=== PATIENT | female | born 1980 | race Caucasian/White ===

== ENCOUNTER 2019-09-28 21:48 | Observation (INO) ==
[2019-09-28] MEDS ORDERED: PROMETHAZINE 25 MG/51 ML BAG IV STA (23:06)
[2019-09-28] MEDS ORDERED: SODIUM CHLORIDE 0.9% 1000ML 2,000 ML IV ONE (23:06)
[2019-09-28 23:18] LABS: Appearance Urine Cloudy (Clear); Bacteria Urine Automated 1+ (Negative); Bilirubin Urine Negative (Negative); Blood Urine 2+ (Negative); Color Urine Dark Yellow; Epithelial Cell Urine Auto >30 /lpf (0-5); Glucose Urine UA Negative (Negative); Leukocyte Esterase Urine 1+ (Negative); Nitrite Urine Negative (Negative); Protein Urine Trace (Negative); Specific Gravity Urine 1.028 (1.000-1.030); Urobilinogen Urine Negative (Negative); pH Urine 5.5 (4.5-7.5)
[2019-09-28 23:22] LABS: Basophils # (auto) 0.01 K/uL (0-0.2); Basophils % (auto) 0.1 %; Eosinophils % (auto) 1.5 %; Hematocrit (blood only) 39.1 % (37-47); Immature Granulocytes # (auto) 0.02 K/uL (0.00-0.02); Immature Granulocytes % (auto) 0.3 %; Lymphocytes # (auto) 1.31 K/uL (1.2-3.4); Lymphocytes % (auto) 19.1 %; Mean Corpuscular Hemoglobin 29.9 pg (25-34); Mean Corpuscular Hgb Conc 35.8 g/dL (32-36); Mean Corpuscular Volume 83.5 fL (80-100); Mean Platelet Volume 9.6 fL (7.4-10.4); Monocytes # (auto) 0.48 K/uL (0.11-0.59); Neutrophils # (auto) 4.95 K/uL (1.4-6.5); Platelet Count 238 K/uL (130-400); RDW Standard Deviation 38.9 fL (36.4-46.3); Red Blood Count 4.68 M/uL (4.2-5.4); White Blood Count 6.87 K/uL (4.8-10.8)
[2019-09-28 23:37] LABS: Ketones Urine 4+ (Negative)
[2019-09-28 23:46] LABS: Albumin Level 3.9 gm/dl (3.4-5.0); BUN Creatinine Ratio 15.7 (10-20); Calcium 9.1 mg/dl (8.5-10.1); Creatinine Clr Calc Pharmacy 80.3 ml/min; Est GFR (African American) 97.3; Est GFR (Non-African American) 83.9; Potassium 3.5 mmol/L (3.5-5.1)
[2019-09-28 23:49] LABS: Bilirubin,Total 0.4 mg/dl (0.2-1); Globulin 3.8 gm/dl (2.5-4.0); Total Protein 7.7 gm/dl (6.4-8.2)
[2019-09-29] MEDS ORDERED: ACETAMINOPHEN 500 MG TAB PO STA (00:33)
[2019-09-29] MEDS ORDERED: KETOROLAC 30 MG/ML VIAL IV STA (00:33)
[2019-09-29] MEDS ORDERED: ONDANSETRON INJ 2 MG/ML 2 ML VIAL IV STA (00:33)
--- NOTE | 2019-09-29 00:38 | Emergency Department Note ---
History of Present Illness General Chief complaint: Nausea Stated complaint: NAUSEA, VOMMITTING, ABD PAIN History of Present Illness Maximum Pain Intensity: 6 HPI Narrative: This patient is a 38-year-old female who presents ambulatory to the emergency department for evaluation of nausea, vomiting, diarrhea and abdominal discomfort. The abdominal discomfort and nausea started several weeks ago. She started with vomiting over the weekend, 3 days ago. She denies any hematemesis. No coffee-ground emesis. She reports that it looks greenish in color. She also reports loose stools starting today. No black or bloody stools. She reports all over body aches. She says the abdominal discomfort is a burning sensation located in the left upper abdomen that is worse with eating. She also describes a fullness in the abdomen. She has not tried anything [id number] for her symptoms. Past Med/Surg History Medical History No pertinent past medical history Social History Feels Safe at Home: Yes Smoking Status: Never smoker Review of Systems A total of 10 systems reviewed and were otherwise negative Physical Exam Vital Signs: Vital Signs - 24 hr 09/28/19 21:54 09/28/19 22:52 09/29/19 00:54 Temperature 37.0 C Temperature Source Oral Pulse Rate 93 H Pulse Rate [Right Finger] 88 68 Pulse Rhythm [Righ t Finger] Regular Respiratory Rate 20 18 14 Respiratory Effort / Characteristics Non-Labored Sponta neous Non-Labored Sponta neous Respiratory Depth Normal Normal Respiratory Patter n Regular Regular Blood Pressure 179/123 H Blood Pressure [Ri ght Arm] 185/131 H 182/121 H Blood Pressure Cee n 141 Blood Pressure Cee n [Right Arm] 149 141 Blood Pressure Pos ition Sitting Pulse Oximetry 98 98 99 Oxygen Delivery Me thod Room Air Room Air Room Air Sepsis Recent Feve r Within 48 Hours No Sepsis New/Unexpla ined Change in Men donald Status No Sepsis Action Take n by Nursing No Action Required 09/29/19 01:50 Temperature Temperature Source Pulse Rate Pulse Rate [Right Finger] 88 Pulse Rhythm [Righ t Finger] Respiratory Rate 16 Respiratory Effort / Characteristics Non-Labored Sponta neous Respiratory Depth Normal Respiratory Patter n Blood Pressure Blood Pressure [Ri ght Arm] 175/117 H Blood Pressure Cee n Blood Pressure Cee n [Right Arm] 136 Blood Pressure Pos ition Pulse Oximetry 97 Oxygen Delivery Me thod Room Air Sepsis Recent Feve r Within 48 Hours Sepsis New/Unexpla ined Change in Men donald Status Sepsis Action Take n by Nursing Constitutional: WD/WN, vitals as above Eyes: EOM intact bilaterally ENMT: external ear and nose normal, oropharynx normal Neck: trachea midline Respiratory: normal respiratory effort, lungs clear to auscultation Cardiovascular: RRR, no murmur, no edema Gastrointestinal (Abdomen): Bowel sounds present, but hypoactive. Tenderness to palpation in the left upper quadrant and epigastric region. No guarding or rebound tenderness. No rigidity noted. Negative Rovsing sign. Musculoskeletal: no cyanosis or clubbing, extremities motor strength 5/5 Skin: no rashes, warm and dry Neurologic: Alert and oriented x3. No focal motor deficits. Psychiatric: Acting appropriately Course Course Patient was seen and examined Vital signs including blood pressure were reviewed medications list was verified with patient Labs were obtained, and a saline lock was established Med/fluids ordered. Imaging performed and reviewed. Upon reevaluation, she was complaining of body aches and nausea. More medication was ordered. We discussed her work-up. She voiced understanding. The case was discussed with surgery and subsequently the hospitalist service. They kindly agreed to evaluate the patient for likely inpatient management. Consultations Consultation #1: Dr. Nowak Consultation #2: Dr. Willson Administered Medications Discontinued Medications Acetaminophen (Tylenol) 1,000 mg PO NOW STA Stop: 09/29/19 00:34 Last Admin: 09/29/19 00:56 Dose: Not Given Documented by: [id number] Hydromorphone HCl (Dilaudid) 0.5 mg IV NOW STA Stop: 09/29/19 01:27 Last Admin: 09/29/19 01:35 Dose: 0.5 mg Documented by: [id number] Sodium Chloride (Nss 1000ml) 2,000 mls @ 999 mls/hr IV .Q2H1M ONE Stop: 09/29/19 01:06 Last Infusion: 09/29/19 00:56 Dose: 0 mls/hr Documented by: [id number] Admin: 09/28/19 23:19 Dose: 999 mls/hr Documented by: [id number] Promethazine HCl (Phenergan) 25 mg in 51 mls @ 204 mls/hr IV NOW STA Stop: 09/28/19 23:20 Last Infusion: 09/29/19 00:32 Dose: 0 mls/hr Documented by: [id number] Admin: 09/28/19 23:19 Dose: 204 mls/hr Documented by: [id number] Ketorolac Tromethamine (Toradol) 30 mg IV NOW STA Stop: 09/29/19 00:34 Last Admin: 09/29/19 00:48 Dose: 30 mg Documented by: [id number] Ondansetron HCl (Zofran) 4 mg IV NOW STA Stop: 09/29/19 00:34 Last Admin: 09/29/19 00:47 Dose: 4 mg Documented by: [id number] Medical Decision Making Differential Diagnosis + gastroenteritis, + food borne illness, + infections, + appendicitis, + diver ticulitis, + inflammatory bowel disease, + GI bleed, + biliary pathology and + vomiting Pancreatitis, among others Medical Records Attestation: I reviewed the patient's medical records. Home Medications Current Medication List: was personally reviewed by me Laboratory Data Attestation: I reviewed the patient's lab results. Result diagrams: 09/28/19 23:12 09/28/19 23:12 Lab Results 09/28/19 09/28/19 09/28/19 Range/Units 22:55 22:55 23:12 WBC 6.87 (4.8-10.8) K/uL RBC 4.68 (4.2-5.4) M/uL Hgb 14.0 (12.0-16.0) g/dL Hct 39.1 (37-47) % MCV 83.5 (80-100) fL MCH 29.9 (25-34) pg MCHC 35.8 (32-36) g/dL RDW Std Deviation 38.9 (36.4-46.3) fL RDW Coeff of Janeen 13.0 (11.5-14.5) % Plt Count 238 (130-400) K/uL MPV 9.6 (7.4-10.4) fL Immature Gran % (Auto) 0.3 % Neut % (Auto) 72.0 % Lymph % (Auto) 19.1 % [place] % (Auto) 7.0 % Eos % (Auto) 1.5 % Baso % (Auto) 0.1 % Immature Gran # (Auto) 0.02 (0.00-0.02) K/uL Neut # (Auto) 4.95 (1.4-6.5) K/uL Lymph # (Auto) 1.31 (1.2-3.4) K/uL [place] # (Auto) 0.48 (0.11-0.59) K/uL Eos # (Auto) 0.10 (0-0.5) K/uL Baso # (Auto) 0.01 (0-0.2) K/uL Sodium (136-145) mmol/L Potassium (3.5-5.1) mmol/L Chloride (98-107) mmol/L Carbon Dioxide (21-32) mmol/L Anion Gap (3-11) BUN (7-18) mg/dl Creatinine (0.6-1.2) mg/dl Est Cr Clr Drug Dosing ml/min Est GFR ( Amer) Est GFR (Non-Af Amer) BUN/Creatinine Ratio (10-20) Glucose (70-99) mg/dl Calcium (8.5-10.1) mg/dl Total Bilirubin (0.2-1) mg/dl AST (15-37) U/L ALT (12-78) U/L Alkaline Phosphatase (45-117) U/L Total Protein (6.4-8.2) gm/dl Albumin (3.4-5.0) gm/dl Globulin (2.5-4.0) gm/dl Albumin/Globulin Ratio (0.9-2) Lipase (73-393) U/L Urine Color Dark Yellow Urine Appearance Cloudy A (Clear) Urine pH 5.5 (4.5-7.5) Ur Specific [place] 1.028 (1.000-1.030) Urine Protein Trace H (Negative) Urine Glucose (UA) Negative (Negative) Urine Ketones 4+ H (Negative) Urine Blood 2+ H (Negative) Urine Nitrite Negative (Negative) Urine Bilirubin Negative (Negative) Urine Urobilinogen Negative (Negative) Ur Leukocyte Esterase 1+ H (Negative) Urine WBC (Auto) 10-30 H (0-5) /hpf Urine RBC (Auto) 5-10 H (0-4) /hpf U Hyaline Cast (Auto) 5-10 H (0-5) /lpf U Epithel Cells (Auto) >30 H (0-5) /lpf Urine Bacteria (Auto) 1+ H (Negative) Urine Test Negative (Negative) Influenza Type A Ag (Neg) Influenza Type B Ag (Neg) 09/28/19 09/29/19 Range/Units 23:12 00:52 WBC (4.8-10.8) K/uL RBC (4.2-5.4) M/uL Hgb (12.0-16.0) g/dL Hct (37-47) % MCV (80-100) fL MCH (25-34) pg MCHC (32-36) g/dL RDW Std Deviation (36.4-46.3) fL RDW Coeff of Janeen (11.5-14.5) % Plt Count (130-400) K/uL MPV (7.4-10.4) fL Immature Gran % (Auto) % Neut % (Auto) % Lymph % (Auto) % [place] % (Auto) % Eos % (Auto) % Baso % (Auto) % Immature Gran # (Auto) (0.00-0.02) K/uL Neut # (Auto) (1.4-6.5) K/uL Lymph # (Auto) (1.2-3.4) K/uL [place] # (Auto) (0.11-0.59) K/uL Eos # (Auto) (0-0.5) K/uL Baso # (Auto) (0-0.2) K/uL Sodium 138 (136-145) mmol/L Potassium 3.5 (3.5-5.1) mmol/L Chloride 106 (98-107) mmol/L Carbon Dioxide 22 (21-32) mmol/L Anion Gap 10.0 (3-11) BUN 14 (7-18) mg/dl Creatinine 0.87 (0.6-1.2) mg/dl Est Cr Clr Drug Dosing 80.3 ml/min Est GFR ( Amer) 97.3 Est GFR (Non-Af Amer) 83.9 BUN/Creatinine Ratio 15.7 (10-20) Glucose 73 (70-99) mg/dl Calcium 9.1 (8.5-10.1) mg/dl Total Bilirubin 0.4 (0.2-1) mg/dl AST 11 L (15-37) U/L ALT 14 (12-78) U/L Alkaline Phosphatase 91 (45-117) U/L Total Protein 7.7 (6.4-8.2) gm/dl Albumin 3.9 (3.4-5.0) gm/dl Globulin 3.8 (2.5-4.0) gm/dl Albumin/Globulin Ratio 1.0 (0.9-2) Lipase 188 (73-393) U/L Urine Color Urine Appearance (Clear) Urine pH (4.5-7.5) Ur Specific [place] (1.000-1.030) Urine Protein (Negative) Urine Glucose (UA) (Negative) Urine Ketones (Negative) Urine Blood (Negative) Urine Nitrite (Negative) Urine Bilirubin (Negative) Urine Urobilinogen (Negative) Ur Leukocyte Esterase (Negative) Urine WBC (Auto) (0-5) /hpf Urine RBC (Auto) (0-4) /hpf U Hyaline Cast (Auto) (0-5) /lpf U Epithel Cells (Auto) (0-5) /lpf Urine Bacteria (Auto) (Negative) Urine Test (Negative) Influenza Type A Ag Neg for Influ A (Neg) Influenza Type B Ag Neg for Influ B (Neg) Imaging Data Attestation: I personally reviewed and interpreted this imaging study as follows: My Impression: Per stat rad Radiologist's Impression: Ultrasound gallbladder preliminary stat rad consistent with multiple gallstones and sludge. No signs of cholecystitis noted. MDM Narrative This patient is a 38-year-old female who presents to the emergency department with complaints of nausea, vomiting and abdominal discomfort. On exam, she was not febrile. Abdomen is not rigid. Labs are fairly unremarkable. Preliminary report of the gallbladder ultrasound is consistent with multiple gallstones. I believe this is contributing to her symptoms. She does not have any signs of cholecystitis. The case was discussed with surgery in addition to the hospitalist service. She will be evaluated for likely inpatient management due to the fact that her nausea was uncontrolled in the emergency department. Impression & Plan Intractable vomiting, Cholelithiasis Discharge Plan Visit Data Chief Complaint: Nausea Stated Complaint: NAUSEA, VOMMITTING, ABD PAIN ED Provider: Derrell Rodriguez ED Midlevel Provider: Tamara Otto Discharge Problem: Intractable vomiting, Cholelithiasis Patient Disposition: Being Evaluated by Hospitalist Condition: Fair Forms Stand Alone Forms: [facility] Referrals Referrals: PCP,NO [Primary Care Provider] -
[2019-09-29 01:02] LABS: Pregnancy Test, Urine Negative (Negative)
[2019-09-29] MEDS ORDERED: HYDROmorphone INJ 0.5 MG/0.5 ML SYR IV STA (01:26)
--- NOTE | 2019-09-29 03:43 | History & Physical Report ---
Date of Service September 29, 2019 Assessment & Plan (1) Intractable vomiting: Britni Acosta is a 38 y/o female with past medical hx of Anxiety, Depression, Migraines, GERD who was admitted for Intractable Vomiting; also HTN most likely rebound from not taking Clonidine. - Suspect viral gastroenteritis as we are seeing this as an endemic illness - She is currently non-toxic, comfortable, states she feels like her prior medications here in ED "are wearing off" - This could be contributed by her rebound HTN from not taking her Clonidine. - All lab work is unremarkable, no electrolyte abnormalities to replace in setting of patient's reported GI symptoms - Will order Zofran 4mg IV q4H - Will attempt to avoid narcotic medications here, already received in ED, in patient with hx of uncontrolled migraines, do not want to cause rebound headache - Toradol ordered for pain - continue hydration with another bag of NSS @ 125mL/hr - Gentle diet with liquid diet - No significantly elevated Pulse to show compensation from GI loss - Unsure that gallstones are contributor Code: full code DVT ppx: SCDs, will avoid chemical as vomiting can cause kamilla adria tear FENGI: Liquid diet, continue with home PPI Dipso: Obs, Med/surg (2) Rebound hypertension: Most likely from not getting her Clonidine from her vomiting causing rebound HTN Hydralazine 10mg IV x1 ordered Follow vital signs (3) Cholelithiasis: As noted on RUQ US, without signs of acute cholecystitis (4) H/O migraine: hold home meds including Triptan in setting of elevated BP (5) Anxiety: Continue with home Wellbrutin Continue with home Clonidine Continue with home Lamotrigine 100mg daily (6) DVT prophylaxis: SCDs History of Present Illness Chief Complaint: Intractable Vomiting Primary Care Provider: NO PCP Britni Acosta is a 38 y/o female with past medical hx of Anxiety, Depression, Migraines, GERD who presented to [facility] ED for CC of Vomiting. She notes onset of vomiting today x4 with continuous nausea, no bloody emesis; emesis was green. She notes she has a numerous episodes of loose stools which have resolved; no black/bloody stools. She notes generalized abdominal pain and RUQ pain as well. She states she has had early satiety for weeks "I haven't been able to eat for weeks." She notes she is unable to eat any thing fried/fatty because of RUQ love n. She denies sick contacts. Britni states she hasn't been able to take her Clonidine which she takes for her mood because of vomiting. She denies prior hx of HTN or DM. All of her home meds are related to Migraine treatment or her Anxiety/depression. She takes Tramadol for neck pain between her botox injections and her Ajovy injection. She follows with a neurologist. She is from [place] but came here to [facility] "because [place] [facility] sucks." Here in the ED she was found to be significantly HTN with BP 180s/120s. Her lab work was unremarkable. UA was contaminated. She was treated with Dilaudid 0.5mg IV, Zofran 4mg IV x1, Toradol 30mg IV x1, Tylenol 1gm PO, Phenergan 25mg IV x1, and received 2L of NSS Bolus. She was had a KUB and RUQ US which showed gallstones without signs of cholecystitis. She denies smoking or recreational drugs. She did not get the annual influenza vaccine. She notes only prior abd surgery was laparoscopic for endometriosis. Allergies Allergy/AdvReac Type Severity Reaction Status Date / Time blue dye Allergy Swelling Verified 09/29/19 02:30 of Lip/Tongue/Throat latex Allergy Rash Verified 09/29/19 02:30 peanut Allergy Swelling Verified 09/29/19 02:30 of Lip/Tongue/Throat Home Medications Home Medications Medication Instructions Recorded Confirmed Type bupropion HCl 100 mg PO .AT NOON 09/29/19 09/29/19 History bupropion HCl 150 mg PO QAM 09/29/19 09/29/19 History clonidine HCl 0.05 mg PO QAM 09/29/19 09/29/19 History clonidine HCl 0.1 mg PO HS 09/29/19 09/29/19 History fremanezumab-vfrm [Ajovy] 225 mg SUBCUT MONTHLY 09/29/19 09/29/19 History lamotrigine 100 mg PO DAILY 09/29/19 09/29/19 History norethindrone (contraceptive) 0.35 mg PO DAILY 09/29/19 09/29/19 History [Blanca] pantoprazole 40 mg PO DAILY 09/29/19 09/29/19 History riboflavin (vitamin B2) [Vitamin 100 mg PO Q OTHER DAY 09/29/19 09/29/19 History B-2] sumatriptan succinate 100 mg PO UD PRN 09/29/19 09/29/19 History tramadol 50 mg PO Q6 PRN 09/29/19 09/29/19 History trazodone 25 - 50 mg PO HS PRN 09/29/19 09/29/19 History Past Med/Surg History Medical History No pertinent past medical history Social History Communication Ability: Effective Promotions Producer Required: No Beliefs That Will Affect Care: None Current Living Situation: Spouse Other Information That Helps Us Care for You: No Feels Safe at Home: Yes Safety Concerns: Feels Safe At This Time Smoking Status: Never smoker Do You Dip or Chew Tobacco: No ; Second Hand Exposure: No ; Tobacco Cessation Education Requested by Patient: No Hx Alcohol Use: No Hx Substance Use: No Review of Systems Review of Systems: All systems reviewed & are unremarkable except as noted in HPI & below Constitutional: no fever and no chills Eyes: no worsening vision Ear, Nose, Mouth, Throat: no nasal congestion and no sore throat Respiratory: + cough; no dyspnea Cardiovascular: no chest pain Gastrointestinal: + abdominal pain, + early satiety, + nausea, + vomiting and + diarrhea/loose stools; no constipation and no blood in stools Genitourinary: Integumentary: no rash and no lesions Neurologic: no numbness and no confusion Physical Exam Constitutional: WD/WN, vitals as above cooperative and comfortable numerous tattoos across body and torso Eyes: PERRL, conjunctivae normal, anicteric sclerae ENMT: external ear and nose normal, oropharynx normal Neck: normal visual inspection and trachea midline Respiratory: normal respiratory effort; no respiratory distress and does not use accessory muscles Auscultation: + diminished lung sounds; no crackles, no rales and no rhonchi Cardiovascular: RRR, no murmur, no edema Gastrointestinal (Abdomen): Inspection/Auscultation: normal bowel sounds Percussion/Palpation: abdomen soft; abdomen nontender, no guarding and abdomen not rigid umbilical old surgical scar consistent with prior laparoscopic surgery Skin: no rashes, warm and dry Neurologic: moves all extremities and awake; no focal motor deficits and not confused Psychiatric: A+Ox3, euthymic affect Results & Data Vital Signs (Past 12 Hours) Vital Signs Temp Pulse Pulse Resp BP BP Pulse Ox 09/29/19 01:50 88 16 175/117 H 97 09/29/19 00:54 68 14 182/121 H 99 09/28/19 22:52 88 18 185/131 H 98 09/28/19 21:54 37.0 C 93 H 20 179/123 H 98 Laboratory Results Laboratory Results - last 24 hr 09/28/19 09/28/19 09/28/19 22:55 22:55 23:12 WBC 6.87 RBC 4.68 Hgb 14.0 Hct 39.1 MCV 83.5 MCH 29.9 MCHC 35.8 RDW Std Deviation 38.9 RDW Coeff of Janeen 13.0 Plt Count 238 MPV 9.6 Immature Gran % (Auto) 0.3 Neut % (Auto) 72.0 Lymph % (Auto) 19.1 [place] % (Auto) 7.0 Eos % (Auto) 1.5 Baso % (Auto) 0.1 Immature Gran # (Auto) 0.02 Neut # (Auto) 4.95 Lymph # (Auto) 1.31 [place] # (Auto) 0.48 Eos # (Auto) 0.10 Baso # (Auto) 0.01 Sodium Potassium Chloride Carbon Dioxide Anion Gap BUN Creatinine Est Cr Clr Drug Dosing Est GFR ( Amer) Est GFR (Non-Af Amer) BUN/Creatinine Ratio Glucose Calcium Total Bilirubin AST ALT Alkaline Phosphatase Total Protein Albumin Globulin Albumin/Globulin Ratio Lipase Urine Color Dark Yellow Urine Appearance Cloudy A Urine pH 5.5 Ur Specific [place] 1.028 Urine Protein Trace H Urine Glucose (UA) Negative Urine Ketones 4+ H Urine Blood 2+ H Urine Nitrite Negative Urine Bilirubin Negative Urine Urobilinogen Negative Ur Leukocyte Esterase 1+ H Urine WBC (Auto) 10-30 H Urine RBC (Auto) 5-10 H U Hyaline Cast (Auto) 5-10 H U Epithel Cells (Auto) >30 H Urine Bacteria (Auto) 1+ H Urine Test Negative Influenza Type A Ag Influenza Type B Ag 09/28/19 09/29/19 23:12 00:52 WBC RBC Hgb Hct MCV MCH MCHC RDW Std Deviation RDW Coeff of Janeen Plt Count MPV Immature Gran % (Auto) Neut % (Auto) Lymph % (Auto) [place] % (Auto) Eos % (Auto) Baso % (Auto) Immature Gran # (Auto) Neut # (Auto) Lymph # (Auto) [place] # (Auto) Eos # (Auto) Baso # (Auto) Sodium 138 Potassium 3.5 Chloride 106 Carbon Dioxide 22 Anion Gap 10.0 BUN 14 Creatinine 0.87 Est Cr Clr Drug Dosing 80.3 Est GFR ( Amer) 97.3 Est GFR (Non-Af Amer) 83.9 BUN/Creatinine Ratio 15.7 Glucose 73 Calcium 9.1 Total Bilirubin 0.4 AST 11 L ALT 14 Alkaline Phosphatase 91 Total Protein 7.7 Albumin 3.9 Globulin 3.8 Albumin/Globulin Ratio 1.0 Lipase 188 Urine Color Urine Appearance Urine pH Ur Specific [place] Urine Protein Urine Glucose (UA) Urine Ketones Urine Blood Urine Nitrite Urine Bilirubin Urine Urobilinogen Ur Leukocyte Esterase Urine WBC (Auto) Urine RBC (Auto) U Hyaline Cast (Auto) U Epithel Cells (Auto) Urine Bacteria (Auto) Urine Test Influenza Type A Ag Neg for Influ A Influenza Type B Ag Neg for Influ B Code Status & VTE Plan Code Status Full VTE Prophylaxis Plan VTE Prophylaxis will be ordered: Yes Supervising Physician Co-Signing Physician Notes Patient was seen and examined by me personally. I reviewed the chart, the orders and discussed the case in detail with Dr. Blake Vivas DO . I read this H&P and agree with its contents to entirety. Resident Activity Tracking Resident Involvement: Resident Care Provided Care Provided: Adult Hospital Medicine
[2019-09-29] MEDS ORDERED: MAGNESIUM HYDROXIDE SUSP 30 ML UDC PO PRN (03:46)
[2019-09-29] MEDS ORDERED: NON-FORMULARY MEDICATION (Riboflavin (Vitamin B2) [Vitamin B-2] 100 MG) PO SCH (03:46)
[2019-09-29] MEDS ORDERED: HydrALAZINE HCL 20 MG/ML VIAL IV STA (03:46)
[2019-09-29] MEDS ORDERED: ACETAMINOPHEN 325 MG TAB PO PRN (03:46)
[2019-09-29] MEDS ORDERED: SODIUM CHLORIDE 0.9% 1000ML 1,000 ML IV SCH (03:46)
[2019-09-29] MEDS ORDERED: ALUMINUM/MAGNESIUM SUSP 30 ML UDC PO PRN (03:46)
[2019-09-29] MEDS ORDERED: INFLUENZA ADMINISTRATION CHARGE ONE (04:14)
[2019-09-29] MEDS ORDERED: INFLUENZA VIRUS QUAD VACCINE 0.5 ML SYR IM ONE (04:14)
[2019-09-29] MEDS: ONDANSETRON INJ 2 MG/ML 2 ML VIAL IV PRN ×3 (05:17→17:47)
--- NOTE | 2019-09-29 05:58 | XRay Report ---
XR KUB/Abdomen 1 view CLINICAL HISTORY: n/v/d nausea. Pain. COMPARISON STUDY: No previous studies for comparison. FINDINGS: The soft tissues, psoas shadows, renal outlines and intestinal gas pattern appear normal. T here is no evidence for bowel obstruction. No abnormal abdominal calcifications are seen. IMPRESSION: Normal study. ACT 112: Negative or not required by law. The above report was generated using voice recognition software. It may contain grammatical, syntax or spelling errors. Electronically signed by: Nic Mckay M.D. 09/29/2019 5:57 AM
[2019-09-29 06:31] LABS: Basophils # (auto) 0.01 K/uL (0-0.2); Basophils % (auto) 0.1 %; Eosinophils # (auto) 0.11 K/uL (0-0.5); Eosinophils % (auto) 1.6 %; Hematocrit (blood only) 38.5 % (37-47); Hemoglobin 13.4 g/dL (12.0-16.0); Immature Granulocytes # (auto) 0.04 K/uL (0.00-0.02); Immature Granulocytes % (auto) 0.6 %; Lymphocytes # (auto) 1.87 K/uL (1.2-3.4); Lymphocytes % (auto) 26.4 %; Mean Corpuscular Hemoglobin 29.3 pg (25-34); Mean Corpuscular Hgb Conc 34.8 g/dL (32-36); Mean Corpuscular Volume 84.2 fL (80-100); Mean Platelet Volume 9.3 fL (7.4-10.4); Monocytes # (auto) 0.53 K/uL (0.11-0.59); Monocytes % (auto) 7.5 %; Neutrophils # (auto) 4.51 K/uL (1.4-6.5); Neutrophils % (auto) 63.8 %; Platelet Count 234 K/uL (130-400); RDW Coefficient of Variation 13.2 % (11.5-14.5); RDW Standard Deviation 39.8 fL (36.4-46.3); Red Blood Count 4.57 M/uL (4.2-5.4); White Blood Count 7.07 K/uL (4.8-10.8)
--- NOTE | 2019-09-29 06:38 | Billing Data ---
Date of Service September 29, 2019 Coding Level of Care Code 00514 OBS Care - Level 3
--- NOTE | 2019-09-29 06:45 | Ultrasound Report ---
US gallbladder HISTORY: 38 years-old Female epigastric pain acute epigastric abdominal pain COMPARISON: KUB of same day TECHNIQUE: Multiple real-time sonographic images of the abdominal right upper quadrant were obtained assessing grayscale appearance and color flow FINDINGS: The visualized pancreas appears unremarkable. The liver is within normal limits without focal mass. C ommon bile duct is normal, 3 mm. No definite intrahepatic biliary ductal dilation. Sludge-filled gall bladder. 4 mm gallstone noted within the gallbladder neck. There is no pericholecystic fluid or gallb ladder wall thickening. Sonographic Hu sign was unable to be assessed secondary to recent pain me dication administered to the patient. Imaged right kidney is unremarkable without hydronephrosis. IMPRESSION: 1. Sludge-filled gallbladder with cholelithiasis. No gallbladder wall thickening or pericholecystic f luid. 2. Normal common bile duct. ACT 112: Negative or not required by law. The above report was generated using voice recognition software. It may contain grammatical, syntax o r spelling errors. Electronically signed by: Souleymane Duenas M.D. 09/29/2019 6:43 AM
[2019-09-29 07:15] LABS: Albumin Globulin Ratio 0.9 (0.9-2); Albumin Level 3.4 gm/dl (3.4-5.0); BUN Creatinine Ratio 17.6 (10-20); Bilirubin,Total 0.4 mg/dl (0.2-1); Calcium 8.2 mg/dl (8.5-10.1); Creatinine Clr Calc Pharmacy 121.2 ml/min; Est GFR (African American) 133.8; Est GFR (Non-African American) 115.5; Globulin 3.6 gm/dl (2.5-4.0); Magnesium 1.8 mg/dl (1.8-2.4); Potassium 3.5 mmol/L (3.5-5.1)
[2019-09-29] MEDS ORDERED: DEXTROSE 50% 50 ML SYRINGE IV STA (07:26)
[2019-09-29] MEDS ORDERED: DEXTROSE 50% 50 ML SYRINGE IV ONE ×2 (07:30→12:03)
[2019-09-29] MEDS: PROMETHAZINE HCL 12.5 MG in SODIUM CHLORIDE 0.9% 50 ML IV PRN ×2 (07:48→15:20)
[2019-09-29] MEDS: lamoTRIgine 100 MG TAB PO SCH (08:31)
[2019-09-29] MEDS: BuPROPion SR 150 MG TABCR PO SCH (08:32)
[2019-09-29] MEDS: PANTOprazole 40 MG TAB PO SCH (08:32)
[2019-09-29] MEDS: cloNIDine HCL 0.1 MG TAB PO SCH ×2 (08:36→17:46)
[2019-09-29] MEDS: KETOROLAC TROMETHAMINE 15 MG/ML VIAL IV PRN ×3 (08:37→20:05)
[2019-09-29] MEDS: BuPROPion SR 100 MG TABCR PO SCH (11:34)
[2019-09-29] MEDS: HydrALAZINE HCL 20 MG/ML VIAL IV PRN (14:11)
[2019-09-29] MEDS: D5W AND NSS 1,000 ML IV SCH (14:17)
[2019-09-29] MEDS ORDERED: DiphenhydrAMINE HCL 50 MG/ML VIAL IV STA (14:35)
[2019-09-29] MEDS ORDERED: FAMOTIDINE 20 MG in SYRINGE 3 ML IV PRN (14:48)
--- NOTE | 2019-09-29 15:03 | XRay Report ---
KUB HISTORY: Acute epigastric abdominal pain Intractable Pain, Epigastric/Right sided, ?stone COMPARISON: KUB 09/28/2019 FINDINGS: The bowel gas pattern is non-obstructive. There are several scattered punctate foci noted t hroughout the abdomen which may reflect ingested material. There is no organomegaly. No renal calcul i. No ureteral calculi. No pneumoperitoneum or pneumatosis. No fracture. IMPRESSION: Nonobstructive bowel gas pattern. ACT 112: Negative or not required by law. The above report was generated using voice recognition software. It may contain grammatical, syntax o r spelling errors. Electronically signed by: Souleymane Duenas M.D. 09/29/2019 3:02 PM
[2019-09-29] MEDS ORDERED: MoRPHine SULFATE 2 MG/ML CARP IV PRN (15:23)
[2019-09-29 16:13] LABS: Albumin Level 3.8 gm/dl (3.4-5.0); BUN Creatinine Ratio 6.1 (10-20); Bilirubin,Total 0.5 mg/dl (0.2-1); Calcium 8.7 mg/dl (8.5-10.1); Creatinine Clr Calc Pharmacy 92.9 ml/min; Est GFR (African American) 112.7; Est GFR (Non-African American) 97.3; Total Protein 7.8 gm/dl (6.4-8.2)
--- NOTE | 2019-09-29 16:21 | Hospitalist Progress Note ---
Date of Service September 29, 2019 Assessment & Plan (1) Intractable vomitin38 y/o female with past medical hx of Anxiety, Depression, Migraines, GERD who was admitted for Intractable Vomiting; also HTN most likely rebound from not taking Clonidine. * Suspect viral gastroenteritis as we are seeing this as an endemic illness. Afebrile, no WBC. Lactate 1.0. Bicarb low morning of 09/29 at 16, however improved to 22 on repeat in afternoon after IVFs were given. * US GB with stones but without evidence of acute cholecystitis, LFTs wnl. Lipase wnl * Continues to have significant hypertension -- did receive hydralazine x 1. Requested evening clonidine be given early. * Zofran prn, however had been unsuccessful --> given phenergan with some relief * Toradol discontinued -- will add morphine prn for now * As patient's BSGs dipped to 52 this morning and again in afternoon, given D5 50mL x 1 and then 25mL in the afternoon --> IVF switched from NSS @ 125mL to D5NS * KUB with nonobstructive bowel gas pattern, however interestingly several scattered foci throughout the abdomen which may reflect ingested material -- per conversation, patient denies ingesting any foreign body to her knowledge * CT A/p pending * NPO for now * Transfer to med/tele for IV lopressor (2) Rebound hypertension: * Most likely from not getting her Clonidine from her vomiting causing rebound HTN * Hydralazine 10mg IV x1 ordered. Repeat given this afternoon. Requested evening clonidine given early as BP 177/110 -- to be rechecked when patient back from CT * May need to give additional hydralazine vs lopressor -- if needing to give IV vs PO may need to be transferred to med/telemetry * Continue to monitor (3) Cholelithiasis: * As noted on RUQ US, without signs of acute cholecystitis (4) H/O migraine: * Hold home meds including Triptan in setting of elevated BP (5) Anxiety: * Chronic. Stable * Continue with home Wellbutrin, clonidine, lamotrigine (6) GERD (gastroesophageal reflux disease): * Continued home protonix -- as patient unable to take PO at this time, scheduled 20mg famotidine BID IV (7) Hypoglycemia: * Glucose in the 50s today likely secondary to no po intake * was given 1 Amp D50 * follow accuchecks q6h (8) DVT prophylaxis: * SCDs * Will avoid chemical as vomiting can cause kamilla adria tear Dispo[facility] for hypertension Supervising Physician Co-Signing Physician Notes PA Supervision Note: I did not personally see or examine the patient today, but I verified all mckeon points of MAX Soto's assessment and plan with the following exceptions/additions: None Subjective Patient evaluated this afternoon. Continues to have abdominal pain, epigastric. Worsened with eating. Two episodes of green vomiting this morning. Nothing since she has been admitted. No bowel movement for the past 24 hours. Patient states she hasn't had anything to eat/drink so this is why she has not had to go to the bathroom. Continues to have nausea. Unable to get any sleep. Did not receive her typical migraine medications this morning and did have a headache this afternoon. She attributed some of this headache to lack of sleep because of her roommate. She states that is her one wish to get some pain control and get some rest. States she has not been able to take her control (which she takes for her hx endometriosis) for the past couple of days because she has been nauseous. Denies having her menses currently. Review of Systems Review of Systems: All systems reviewed & are unremarkable except as noted in HPI & below Constitutional: + chills; no fever Eyes: + diplopia and + problem reported Ear, Nose, Mouth, Throat: no sore throat and no dysphagia Respiratory: no cough and no dyspnea Cardiovascular: no chest pain and no edema Gastrointestinal: + abdominal pain, + nausea and + vomiting Genitourinary: no dysuria and no urinary frequency Neurologic: + headache(s) Physical Exam Constitutional: well developed, well nourished and cooperative; + uncomfortable Eyes: PERRL, conjunctivae normal, anicteric sclerae Neck: trachea midline, no thyromegaly Respiratory: normal respiratory effort, lungs clear to auscultation Cardiovascular: RRR, no murmur, no edema Gastrointestinal (Abdomen): Inspection/Auscultation: normal bowel sounds Percussion/Palpation: + abdomen tender (minimally tender diffusely) and abdomen soft; no hepatosplenomegaly Musculoskeletal: no cyanosis or clubbing, extremities motor strength 5/5 Skin: no rashes, warm and dry Neurologic: PERRL, EOMI, accommodation nl, no face palsy, no dysarthria Psychiatric: Orientation: alert and oriented x 3 Mood: + anxious mood Lymphatic: no cervical or axillary lymphadenopathy Results & Data Vital Signs (Past 12 Hours) Vital Signs Temp Pulse Resp BP Pulse Ox 09/29/19 15:19 36.5 C 113 H 17 99 09/29/19 13:55 179/104 H 09/29/19 07:25 37.1 C 104 H 17 175/111 H 95 Laboratory Results 09/29/19 09/29/19 09/29/19 Range/Units 17:48 15:45 15:44 WBC (4.8-10.8) K/uL RBC (4.2-5.4) M/uL Hgb (12.0-16.0) g/dL Hct (37-47) % MCV (80-100) fL MCH (25-34) pg MCHC (32-36) g/dL RDW Std Deviation (36.4-46.3) fL RDW Coeff of Janeen (11.5-14.5) % Plt Count (130-400) K/uL MPV (7.4-10.4) fL Immature Gran % (Auto) % Neut % (Auto) % Lymph % (Auto) % Crawford % (Auto) % Eos % (Auto) % Baso % (Auto) % Immature Gran # (Auto) (0.00-0.02) K/uL Neut # (Auto) (1.4-6.5) K/uL Lymph # (Auto) (1.2-3.4) K/uL Crawford # (Auto) (0.11-0.59) K/uL Eos # (Auto) (0-0.5) K/uL Baso # (Auto) (0-0.2) K/uL Sodium (136-145) mmol/L Potassium (3.5-5.1) mmol/L Chloride (98-107) mmol/L Carbon Dioxide (21-32) mmol/L Anion Gap (3-11) BUN (7-18) mg/dl Creatinine (0.6-1.2) mg/dl Est Cr Clr Drug Dosing ml/min Est GFR ( Amer) Est GFR (Non-Af Amer) BUN/Creatinine Ratio (10-20) Glucose (70-99) mg/dl POC Glucose 91 (70-99) mg/dl Lactate 1.0 (0.4-2.0) mmol/L Calcium (8.5-10.1) mg/dl Magnesium (1.8-2.4) mg/dl Total Bilirubin (0.2-1) mg/dl AST (15-37) U/L ALT (12-78) U/L Alkaline Phosphatase (45-117) U/L Troponin I (0-0.045) ng/ml Total Protein (6.4-8.2) gm/dl Albumin (3.4-5.0) gm/dl Globulin (2.5-4.0) gm/dl Albumin/Globulin Ratio (0.9-2) Lipase Cancelled (73-393) U/L Urine Color Urine Appearance (Clear) Urine pH (4.5-7.5) Ur Specific [place] (1.000-1.030) Urine Protein (Negative) Urine Glucose (UA) (Negative) Urine Ketones (Negative) Urine Blood (Negative) Urine Nitrite (Negative) Urine Bilirubin (Negative) Urine Urobilinogen (Negative) Ur Leukocyte Esterase (Negative) Urine WBC (Auto) (0-5) /hpf Urine RBC (Auto) (0-4) /hpf U Hyaline Cast (Auto) (0-5) /lpf U Epithel Cells (Auto) (0-5) /lpf Urine Bacteria (Auto) (Negative) Urine Test (Negative) Influenza Type A Ag (Neg) Influenza Type B Ag (Neg) 09/29/19 09/29/19 09/29/19 Range/Units 15:44 12:40 12:06 WBC (4.8-10.8) K/uL RBC (4.2-5.4) M/uL Hgb (12.0-16.0) g/dL Hct (37-47) % MCV (80-100) fL MCH (25-34) pg MCHC (32-36) g/dL RDW Std Deviation (36.4-46.3) fL RDW Coeff of Janeen (11.5-14.5) % Plt Count (130-400) K/uL MPV (7.4-10.4) fL Immature Gran % (Auto) % Neut % (Auto) % Lymph % (Auto) % Crawford % (Auto) % Eos % (Auto) % Baso % (Auto) % Immature Gran # (Auto) (0.00-0.02) K/uL Neut # (Auto) (1.4-6.5) K/uL Lymph # (Auto) (1.2-3.4) K/uL Crawford # (Auto) (0.11-0.59) K/uL Eos # (Auto) (0-0.5) K/uL Baso # (Auto) (0-0.2) K/uL Sodium 138 (136-145) mmol/L Potassium (3.5-5.1) mmol/L Chloride 110 H (98-107) mmol/L Carbon Dioxide 22 (21-32) mmol/L Anion Gap 6.0 (3-11) BUN 5 L D (7-18) mg/dl Creatinine 0.77 (0.6-1.2) mg/dl Est Cr Clr Drug Dosing 92.9 ml/min Est GFR ( Amer) 112.7 Est GFR (Non-Af Amer) 97.3 BUN/Creatinine Ratio 6.1 L (10-20) Glucose 75 (70-99) mg/dl POC Glucose 136 H 53 L* (70-99) mg/dl Lactate (0.4-2.0) mmol/L Calcium 8.7 (8.5-10.1) mg/dl Magnesium (1.8-2.4) mg/dl Total Bilirubin 0.5 (0.2-1) mg/dl AST (15-37) U/L ALT 17 (12-78) U/L Alkaline Phosphatase 95 (45-117) U/L Troponin I (0-0.045) ng/ml Total Protein 7.8 (6.4-8.2) gm/dl Albumin 3.8 (3.4-5.0) gm/dl Globulin 4.0 (2.5-4.0) gm/dl Albumin/Globulin Ratio 1.0 (0.9-2) Lipase 278 (73-393) U/L Urine Color Urine Appearance (Clear) Urine pH (4.5-7.5) Ur Specific [place] (1.000-1.030) Urine Protein (Negative) Urine Glucose (UA) (Negative) Urine Ketones (Negative) Urine Blood (Negative) Urine Nitrite (Negative) Urine Bilirubin (Negative) Urine Urobilinogen (Negative) Ur Leukocyte Esterase (Negative) Urine WBC (Auto) (0-5) /hpf Urine RBC (Auto) (0-4) /hpf U Hyaline Cast (Auto) (0-5) /lpf U Epithel Cells (Auto) (0-5) /lpf Urine Bacteria (Auto) (Negative) Urine Test (Negative) Influenza Type A Ag (Neg) Influenza Type B Ag (Neg) 09/29/19 09/29/19 09/29/19 Range/Units 11:42 07:56 07:37 WBC (4.8-10.8) K/uL RBC (4.2-5.4) M/uL Hgb (12.0-16.0) g/dL Hct (37-47) % MCV (80-100) fL MCH (25-34) pg MCHC (32-36) g/dL RDW Std Deviation (36.4-46.3) fL RDW Coeff of Janeen (11.5-14.5) % Plt Count (130-400) K/uL MPV (7.4-10.4) fL Immature Gran % (Auto) % Neut % (Auto) % Lymph % (Auto) % [place] % (Auto) % Eos % (Auto) % Baso % (Auto) % Immature Gran # (Auto) (0.00-0.02) K/uL Neut # (Auto) (1.4-6.5) K/uL Lymph # (Auto) (1.2-3.4) K/uL Crawford # (Auto) (0.11-0.59) K/uL Eos # (Auto) (0-0.5) K/uL Baso # (Auto) (0-0.2) K/uL Sodium (136-145) mmol/L Potassium (3.5-5.1) mmol/L Chloride (98-107) mmol/L Carbon Dioxide (21-32) mmol/L Anion Gap (3-11) BUN (7-18) mg/dl Creatinine (0.6-1.2) mg/dl Est Cr Clr Drug Dosing ml/min Est GFR ( Amer) Est GFR (Non-Af Amer) BUN/Creatinine Ratio (10-20) Glucose (70-99) mg/dl POC Glucose 67 L* 254 H 59 L* (70-99) mg/dl Lactate (0.4-2.0) mmol/L Calcium (8.5-10.1) mg/dl Magnesium (1.8-2.4) mg/dl Total Bilirubin (0.2-1) mg/dl AST (15-37) U/L ALT (12-78) U/L Alkaline Phosphatase (45-117) U/L Troponin I (0-0.045) ng/ml Total Protein (6.4-8.2) gm/dl Albumin (3.4-5.0) gm/dl Globulin (2.5-4.0) gm/dl Albumin/Globulin Ratio (0.9-2) Lipase (73-393) U/L Urine Color Urine Appearance (Clear) Urine pH (4.5-7.5) Ur Specific [place] (1.000-1.030) Urine Protein (Negative) Urine Glucose (UA) (Negative) Urine Ketones (Negative) Urine Blood (Negative) Urine Nitrite (Negative) Urine Bilirubin (Negative) Urine Urobilinogen (Negative) Ur Leukocyte Esterase (Negative) Urine WBC (Auto) (0-5) /hpf Urine RBC (Auto) (0-4) /hpf U Hyaline Cast (Auto) (0-5) /lpf U Epithel Cells (Auto) (0-5) /lpf Urine Bacteria (Auto) (Negative) Urine Test (Negative) Influenza Type A Ag (Neg) Influenza Type B Ag (Neg) 09/29/19 09/29/19 09/29/19 Range/Units 06:19 06:19 06:19 WBC 7.07 (4.8-10.8) K/uL RBC 4.57 (4.2-5.4) M/uL Hgb 13.4 (12.0-16.0) g/dL Hct 38.5 (37-47) % MCV 84.2 (80-100) fL MCH 29.3 (25-34) pg MCHC 34.8 (32-36) g/dL RDW Std Deviation 39.8 (36.4-46.3) fL RDW Coeff of Janeen 13.2 (11.5-14.5) % Plt Count 234 (130-400) K/uL MPV 9.3 (7.4-10.4) fL Immature Gran % (Auto) 0.6 % Neut % (Auto) 63.8 % Lymph % (Auto) 26.4 % Crawford % (Auto) 7.5 % Eos % (Auto) 1.6 % Baso % (Auto) 0.1 % Immature Gran # (Auto) 0.04 H (0.00-0.02) K/uL Neut # (Auto) 4.51 (1.4-6.5) K/uL Lymph # (Auto) 1.87 (1.2-3.4) K/uL Crawford # (Auto) 0.53 (0.11-0.59) K/uL Eos # (Auto) 0.11 (0-0.5) K/uL Baso # (Auto) 0.01 (0-0.2) K/uL Sodium 139 (136-145) mmol/L Potassium 3.5 (3.5-5.1) mmol/L Chloride 112 H (98-107) mmol/L Carbon Dioxide 16 L (21-32) mmol/L Anion Gap 11.0 (3-11) BUN 10 (7-18) mg/dl Creatinine 0.59 L (0.6-1.2) mg/dl Est Cr Clr Drug Dosing 121.2 ml/min Est GFR ( Amer) 133.8 Est GFR (Non-Af Amer) 115.5 BUN/Creatinine Ratio 17.6 (10-20) Glucose 52 L* (70-99) mg/dl POC Glucose (70-99) mg/dl Lactate (0.4-2.0) mmol/L Calcium 8.2 L (8.5-10.1) mg/dl Magnesium 1.8 (1.8-2.4) mg/dl Total Bilirubin 0.4 (0.2-1) mg/dl AST 9 L (15-37) U/L ALT 13 (12-78) U/L Alkaline Phosphatase 85 (45-117) U/L Troponin I < 0.015 (0-0.045) ng/ml Total Protein 7.0 (6.4-8.2) gm/dl Albumin 3.4 (3.4-5.0) gm/dl Globulin 3.6 (2.5-4.0) gm/dl Albumin/Globulin Ratio 0.9 (0.9-2) Lipase (73-393) U/L Urine Color Urine Appearance (Clear) Urine pH (4.5-7.5) Ur Specific [place] (1.000-1.030) Urine Protein (Negative) Urine Glucose (UA) (Negative) Urine Ketones (Negative) Urine Blood (Negative) Urine Nitrite (Negative) Urine Bilirubin (Negative) Urine Urobilinogen (Negative) Ur Leukocyte Esterase (Negative) Urine WBC (Auto) (0-5) /hpf Urine RBC (Auto) (0-4) /hpf U Hyaline Cast (Auto) (0-5) /lpf U Epithel Cells (Auto) (0-5) /lpf Urine Bacteria (Auto) (Negative) Urine Test (Negative) Influenza Type A Ag (Neg) Influenza Type B Ag (Neg) 09/29/19 09/28/19 09/28/19 Range/Units 00:52 23:12 23:12 WBC 6.87 (4.8-10.8) K/uL RBC 4.68 (4.2-5.4) M/uL Hgb 14.0 (12.0-16.0) g/dL Hct 39.1 (37-47) % MCV 83.5 (80-100) fL MCH 29.9 (25-34) pg MCHC 35.8 (32-36) g/dL RDW Std Deviation 38.9 (36.4-46.3) fL RDW Coeff of Janeen 13.0 (11.5-14.5) % Plt Count 238 (130-400) K/uL MPV 9.6 (7.4-10.4) fL Immature Gran % (Auto) 0.3 % Neut % (Auto) 72.0 % Lymph % (Auto) 19.1 % Crawford % (Auto) 7.0 % Eos % (Auto) 1.5 % Baso % (Auto) 0.1 % Immature Gran # (Auto) 0.02 (0.00-0.02) K/uL Neut # (Auto) 4.95 (1.4-6.5) K/uL Lymph # (Auto) 1.31 (1.2-3.4) K/uL Crawford # (Auto) 0.48 (0.11-0.59) K/uL Eos # (Auto) 0.10 (0-0.5) K/uL Baso # (Auto) 0.01 (0-0.2) K/uL Sodium 138 (136-145) mmol/L Potassium 3.5 (3.5-5.1) mmol/L Chloride 106 (98-107) mmol/L Carbon Dioxide 22 (21-32) mmol/L Anion Gap 10.0 (3-11) BUN 14 (7-18) mg/dl Creatinine 0.87 (0.6-1.2) mg/dl Est Cr Clr Drug Dosing 80.3 ml/min Est GFR ( Amer) 97.3 Est GFR (Non-Af Amer) 83.9 BUN/Creatinine Ratio 15.7 (10-20) Glucose 73 (70-99) mg/dl POC Glucose (70-99) mg/dl Lactate (0.4-2.0) mmol/L Calcium 9.1 (8.5-10.1) mg/dl Magnesium (1.8-2.4) mg/dl Total Bilirubin 0.4 (0.2-1) mg/dl AST 11 L (15-37) U/L ALT 14 (12-78) U/L Alkaline Phosphatase 91 (45-117) U/L Troponin I (0-0.045) ng/ml Total Protein 7.7 (6.4-8.2) gm/dl Albumin 3.9 (3.4-5.0) gm/dl Globulin 3.8 (2.5-4.0) gm/dl Albumin/Globulin Ratio 1.0 (0.9-2) Lipase 188 (73-393) U/L Urine Color Urine Appearance (Clear) Urine pH (4.5-7.5) Ur Specific [place] (1.000-1.030) Urine Protein (Negative) Urine Glucose (UA) (Negative) Urine Ketones (Negative) Urine Blood (Negative) Urine Nitrite (Negative) Urine Bilirubin (Negative) Urine Urobilinogen (Negative) Ur Leukocyte Esterase (Negative) Urine WBC (Auto) (0-5) /hpf Urine RBC (Auto) (0-4) /hpf U Hyaline Cast (Auto) (0-5) /lpf U Epithel Cells (Auto) (0-5) /lpf Urine Bacteria (Auto) (Negative) Urine Test (Negative) Influenza Type A Ag Neg for Influ A (Neg) Influenza Type B Ag Neg for Influ B (Neg) 09/28/19 09/28/19 Range/Units 22:55 22:55 WBC (4.8-10.8) K/uL RBC (4.2-5.4) M/uL Hgb (12.0-16.0) g/dL Hct (37-47) % MCV (80-100) fL MCH (25-34) pg MCHC (32-36) g/dL RDW Std Deviation (36.4-46.3) fL RDW Coeff of Janeen (11.5-14.5) % Plt Count (130-400) K/uL MPV (7.4-10.4) fL Immature Gran % (Auto) % Neut % (Auto) % Lymph % (Auto) % [place] % (Auto) % Eos % (Auto) % Baso % (Auto) % Immature Gran # (Auto) (0.00-0.02) K/uL Neut # (Auto) (1.4-6.5) K/uL Lymph # (Auto) (1.2-3.4) K/uL [place] # (Auto) (0.11-0.59) K/uL Eos # (Auto) (0-0.5) K/uL Baso # (Auto) (0-0.2) K/uL Sodium (136-145) mmol/L Potassium (3.5-5.1) mmol/L Chloride (98-107) mmol/L Carbon Dioxide (21-32) mmol/L Anion Gap (3-11) BUN (7-18) mg/dl Creatinine (0.6-1.2) mg/dl Est Cr Clr Drug Dosing ml/min Est GFR ( Amer) Est GFR (Non-Af Amer) BUN/Creatinine Ratio (10-20) Glucose (70-99) mg/dl POC Glucose (70-99) mg/dl Lactate (0.4-2.0) mmol/L Calcium (8.5-10.1) mg/dl Magnesium (1.8-2.4) mg/dl Total Bilirubin (0.2-1) mg/dl AST (15-37) U/L ALT (12-78) U/L Alkaline Phosphatase (45-117) U/L Troponin I (0-0.045) ng/ml Total Protein (6.4-8.2) gm/dl Albumin (3.4-5.0) gm/dl Globulin (2.5-4.0) gm/dl Albumin/Globulin Ratio (0.9-2) Lipase (73-393) U/L Urine Color Dark Yellow Urine Appearance Cloudy A (Clear) Urine pH 5.5 (4.5-7.5) Ur Specific [place] 1.028 (1.000-1.030) Urine Protein Trace H (Negative) Urine Glucose (UA) Negative (Negative) Urine Ketones 4+ H (Negative) Urine Blood 2+ H (Negative) Urine Nitrite Negative (Negative) Urine Bilirubin Negative (Negative) Urine Urobilinogen Negative (Negative) Ur Leukocyte Esterase 1+ H (Negative) Urine WBC (Auto) 10-30 H (0-5) /hpf Urine RBC (Auto) 5-10 H (0-4) /hpf U Hyaline Cast (Auto) 5-10 H (0-5) /lpf U Epithel Cells (Auto) >30 H (0-5) /lpf Urine Bacteria (Auto) 1+ H (Negative) Urine Test Negative (Negative) Influenza Type A Ag (Neg) Influenza Type B Ag (Neg) Diagnostic Findings KUB PG Care Time/CCT Total # of Minutes Spent Total Time Spent with Patient: Total time spent is greater than 50% in coordination of care (as documented) at patient's floor/unit and/or counseling patient: Coding Level of Care Code None Diagnoses Intractable vomiting R11.10 Rebound hypertension I15.8 Cholelithiasis K80.20 H/O migraine Z86.69 Anxiety F41.9 GERD (gastroesophageal reflux disease) K21.9 Hypoglycemia E16.2 DVT prophylaxis Z29.9
[2019-09-29] MEDS ORDERED: IOVERSOL 100ml IV PRN (18:06)
--- NOTE | 2019-09-29 18:23 | CT Scan Report ---
ABDOMEN AND PELVIS CT WITH IV CONTRAST CT DOSE: 305.14 mGy.cm HISTORY: Upper abd pain, intractable nausea TECHNIQUE: Multiaxial CT images of the abdomen and pelvis were performed following the use of intrave nous contrast. A dose lowering technique was utilized adhering to the principles of ALARA. COMPARISON STUDY: Abdominal ultrasound 09/28/2019. FINDINGS: The lung bases are clear. No pneumoperitoneum. No pneumatosis. The liver, spleen, adrenal g lands, pancreas, and kidneys are unremarkable. No hydronephrosis. The gallbladder is decompressed but appears unremarkable. No retroperitoneal lymphadenopathy. Normal caliber abdominal aorta. Tiny fat-c ontaining umbilical hernia. The bladder is not well-distended. The uterus and bilateral adnexa are un remarkable. Majority of the colon is decompressed. No bowel wall thickening or obstruction. Normal ap pendix. No fractures within the visualized osseous structures. IMPRESSION: 1. No bowel wall thickening or obstruction. 2. Normal appendix. 3. No hydronephrosis. ACT 112: Negative or not required by law. Electronically signed by: Omega Sy M.D. 09/29/2019 6:22 PM
[2019-09-29] MEDS ORDERED: METOPROLOL TARTRATE 1 MG/ML VIAL IV ONE (19:00)
[2019-09-29] MEDS: FAMOTIDINE 20 MG in SYRINGE 3 ML IV SCH (20:28)
[2019-09-29] MEDS: MoRPHine SULFATE 4 MG/ML 1 ML CARP\\VIAL IV PRN (20:40)
[2019-09-29] MEDS ORDERED: ACETAMINOPHEN 1,000 MG/100 ML VIAL IV PRN (22:03)
[2019-09-30] MEDS: D5W AND NSS 1,000 ML IV SCH ×2 (00:30→08:35)
[2019-09-30] MEDS: MoRPHine SULFATE 4 MG/ML 1 ML CARP\\VIAL IV PRN ×3 (03:20→15:51)
[2019-09-30] MEDS: HydrALAZINE HCL 20 MG/ML VIAL IV PRN (04:55)
[2019-09-30] MEDS: ONDANSETRON INJ 2 MG/ML 2 ML VIAL IV PRN (05:48)
[2019-09-30] MEDS ORDERED: DiphenhydrAMINE HCL 50 MG/ML VIAL IV STA ×2 (06:04→19:59)
[2019-09-30] MEDS ORDERED: KETOROLAC TROMETHAMINE 15 MG/ML VIAL IV ONE ×2 (06:04→19:59)
[2019-09-30 07:07] LABS: Amphetamines+Metham, Urine Neg (Neg); Barbiturates, Urine Neg (Neg); Benzodiazepine, Urine Neg (Neg); Cocaine, Urine Neg (Neg); MDMA (Ecstacy), Urine Pos (Neg); Methadone, Urine Neg (Neg); Opiate, Urine Pos (Neg); Phencyclidine, Urine Neg (Neg)
[2019-09-30 07:44] LABS: Basophils # (auto) 0.01 K/uL (0-0.2); Basophils % (auto) 0.1 %; Eosinophils # (auto) 0.09 K/uL (0-0.5); Eosinophils % (auto) 1.1 %; Hematocrit (blood only) 38.6 % (37-47); Hemoglobin 13.5 g/dL (12.0-16.0); Immature Granulocytes # (auto) 0.02 K/uL (0.00-0.02); Immature Granulocytes % (auto) 0.2 %; Lymphocytes # (auto) 1.48 K/uL (1.2-3.4); Lymphocytes % (auto) 17.6 %; Mean Corpuscular Hemoglobin 29.3 pg (25-34); Mean Corpuscular Volume 83.9 fL (80-100); Mean Platelet Volume 9.8 fL (7.4-10.4); Monocytes # (auto) 0.64 K/uL (0.11-0.59); Monocytes % (auto) 7.6 %; Neutrophils # (auto) 6.16 K/uL (1.4-6.5); Neutrophils % (auto) 73.4 %; Platelet Count 233 K/uL (130-400); RDW Coefficient of Variation 13.3 % (11.5-14.5); RDW Standard Deviation 40.4 fL (36.4-46.3)
[2019-09-30 08:11] LABS: Albumin Level 3.4 gm/dl (3.4-5.0); BUN Creatinine Ratio 4.5 (10-20); Calcium 8.5 mg/dl (8.5-10.1); Creatinine Clr Calc Pharmacy 116.9 ml/min; Est GFR (African American) 132.4; Est GFR (Non-African American) 114.2; Magnesium 1.8 mg/dl (1.8-2.4); Potassium 3.1 mmol/L (3.5-5.1)
[2019-09-30 08:14] LABS: Bilirubin,Total 0.5 mg/dl (0.2-1); Globulin 3.3 gm/dl (2.5-4.0); Total Protein 6.7 gm/dl (6.4-8.2)
[2019-09-30] MEDS: FAMOTIDINE 20 MG in SYRINGE 3 ML IV SCH (08:35)
[2019-09-30] MEDS: BuPROPion SR 150 MG TABCR PO SCH (08:35)
[2019-09-30] MEDS: cloNIDine HCL 0.1 MG TAB PO SCH ×2 (08:35→21:28)
[2019-09-30] MEDS: lamoTRIgine 100 MG TAB PO SCH (08:35)
[2019-09-30] MEDS: PANTOprazole 40 MG TAB PO SCH (08:36)
[2019-09-30] MEDS ORDERED: POTASSIUM CHLORIDE 20 MEQ TABCR PO ONE (09:45)
[2019-09-30] MEDS: POTASSIUM CHLORIDE / WTR 10 MEQ/100 ML PLCT IV SCH ×2 (10:01→10:54)
[2019-09-30] MEDS: POTASSIUM CHLORIDE 40 MEQ in D5W AND NSS 1,000 ML IV SCH ×2 (10:01→21:25)
[2019-09-30] MEDS ORDERED: diazePAM 5 MG TABLET PO ONE (11:35)
[2019-09-30] MEDS: BuPROPion SR 100 MG TABCR PO SCH (12:05)
--- NOTE | 2019-09-30 12:48 | Hospitalist Progress Note ---
Date of Service September 30, 2019 Assessment & Plan (1) Intractable nausea and vomitin38 y/o female with past medical hx of Anxiety, Depression, Migraines, GERD who was admitted for Intractable Vomiting; also HTN most likely rebound from not taking Clonidine. * Suspect viral gastroenteritis as we are seeing this as an endemic illness. Also, rebound hypertension and migraine also contributing to continued associated nausea. No further episodes of vomiting while inpatient, although patient thought she might this morning when her headache worsened * Afebrile, no WBC. Lactate 1.0. Bicarb low morning of 09/29 at 16, however improved to 22 on repeat in afternoon after IVFs were given. Bicarb stable at 21 * US GB with stones but without evidence of acute cholecystitis, LFTs wnl. Lipase wnl * Continues to have significant hypertension -- did receive hydralazine x 1. Requested evening clonidine be given early. * Zofran prn, however had been unsuccessful --> given Phenergan with some relief * Toradol discontinued -- will add morphine prn for now, although could cause rebound headache * had hypoglycemia on first day of admission, given D5 50mL x 1 and then 25mL in the afternoon --> IVF switched from NSS @ 125mL to D5NS * KUB with nonobstructive bowel gas pattern, however interestingly several scattered foci throughout the abdomen which may reflect ingested material -- per conversation, patient denies ingesting any foreign body to her knowledge * CT A/p without acute process * NPO -- advanced to full liquid diet * Consider GI consultation if abdominal pain recurs * Transferred to med/tele for IV lopressor evening of 09/29-- has been NSR 80-90s overnight, 80s this morning -- additional dose 5mg ordered for BP 158/118 with pulse 95bpm * UA positive for opiates (likely secondary to morphine) and ecstasy (possibly from bupropion use) (2) Rebound hypertension: * Most likely from not getting her Clonidine from her vomiting causing rebound HTN. Patient taking today PO today * Morphine could also be contributing to headache * Hydralazine prn * Given lopressor evening 09/29 * Additional dose ordered for now with BP 158/118 * Continue to monitor (3) Cholelithiasis: * As noted on RUQ US, without signs of acute cholecystitis * Could consider HIDA scan as outpatient if patient has recurrance of abd pain for possible biliary colic (4) H/O migraine: * Hold home meds including Triptan in setting of elevated BP * need to find out more about headache history and who manages her meds * continue lamictal * give reglan and benadryl for abortive therapy prn * treating for tension as well with valium (5) Anxiety: * Chronic. Stable * Continue with home Wellbutrin, clonidine, lamotrigine (6) GERD (gastroesophageal reflux disease): * Continued home protonix -- patient initially unable to take PO and added famotidine BID IV * Will continue for now as patient with continued nausea, although suspect secondary to migraine/elevated BP (7) Hypoglycemia: * Glucose in the 50s initially likely secondary to no po intake * See above -- IVF transitioned to D5NS @ 125/hr -- added 40 MEQ KCL for K of 3.1 this morning. * follow accuchecks q6h * BSGs 91-136 over the past 24 hours (8) Hypokalemia: * K 3.1 * 2 K riders in addition to 40 MEQ in IVF as patient without much of an appetite. Mag wnl * Repeat in AM (9) DVT prophylaxis: * SCDs * Will avoid chemical as vomiting can cause kamilla adria tear Dispo: need to get BP under better control, likely additional night -- possible discharge in AM pending response Supervising Physician Co-Signing Physician Notes PA Supervision Note: I did not personally see or examine the patient today, but I verified all mckeon points of MAX Soto's assessment and plan with the following exceptions/additions: None Subjective Patient evaluated this morning in bed. States she continues to have a migraine t hat is typical for her and when it acts up she has associated nausea. States her headache starts in the front and travels to the back of her head and she has some neck strain, which she states is typical when she gets a bad migraine. No further episodes of emesis but states she does not have much of an appetite. She states her abdominal pain is much better today, but the primary concern is migraine. Unable to give her triptan with elevated BP currently. Asking for muscle relaxer for her neck. States she had taken flexeril in the past, green pill, unsure of dose. Discussed valium x1 to see if that helps with neck/muscle spasm Review of Systems Constitutional: no fever and no chills Eyes: + photophobia; no diplopia and no problem reported Respiratory: no cough and no dyspnea Cardiovascular: no chest pain and no edema Gastrointestinal: + abdominal pain (decreased) and + nausea (with headache); no vomiting Genitourinary: no dysuria and no hematuria Musculoskeletal: + neck pain and + stiffness Integumentary: no rash and no lesions Physical Exam Constitutional: well developed, well nourished and cooperative; + uncomfortable Eyes: + anicteric sclerae and PERRL ENMT: paraspinal muscles tense, tender to palpation Neck: trachea midline, no thyromegaly Respiratory: normal respiratory effort, lungs clear to auscultation Cardiovascular: RRR, no murmur, no edema Gastrointestinal (Abdomen): Inspection/Auscultation: normal bowel sounds Percussion/Palpation: abdomen soft; no hepatosplenomegaly Musculoskeletal: no cyanosis or clubbing, extremities motor strength 5/5 Skin: no rashes, warm and dry Neurologic: PERRL, EOMI, accommodation nl, no face palsy, no dysarthria Negative Kernig and Brudzinski Psychiatric: Orientation: alert and oriented x 3 Lymphatic: no cervical or axillary lymphadenopathy Results & Data ([facility]) Vital Signs (Past 12 Hours) Vital Signs Temp Pulse Pulse Resp BP Pulse Ox 09/30/19 11:57 36.4 C L 95 H 18 158/118 H 97 09/30/19 10:00 86 09/30/19 07:14 36.8 C 91 H 20 169/90 H 96 09/30/19 04:22 37.1 C 87 16 166/104 H 94 Laboratory Results 09/30/19 09/30/19 09/30/19 Range/Units 11:50 07:46 07:13 WBC (4.8-10.8) K/uL RBC (4.2-5.4) M/uL Hgb (12.0-16.0) g/dL Hct (37-47) % MCV (80-100) fL MCH (25-34) pg MCHC (32-36) g/dL RDW Std Deviation (36.4-46.3) fL RDW Coeff of Janeen (11.5-14.5) % Plt Count (130-400) K/uL MPV (7.4-10.4) fL Immature Gran % (Auto) % Neut % (Auto) % Lymph % (Auto) % [place] % (Auto) % Eos % (Auto) % Baso % (Auto) % Immature Gran # (Auto) (0.00-0.02) K/uL Neut # (Auto) (1.4-6.5) K/uL Lymph # (Auto) (1.2-3.4) K/uL [place] # (Auto) (0.11-0.59) K/uL Eos # (Auto) (0-0.5) K/uL Baso # (Auto) (0-0.2) K/uL Sodium 138 (136-145) mmol/L Potassium 3.1 L (3.5-5.1) mmol/L Chloride 111 H (98-107) mmol/L Carbon Dioxide 21 (21-32) mmol/L Anion Gap 6.0 (3-11) BUN 3 L (7-18) mg/dl Creatinine 0.61 (0.6-1.2) mg/dl Est Cr Clr Drug Dosing 116.9 ml/min Est GFR ( Amer) 132.4 Est GFR (Non-Af Amer) 114.2 BUN/Creatinine Ratio 4.5 L (10-20) Glucose 121 H (70-99) mg/dl POC Glucose 117 H 132 H (70-99) mg/dl Lactate (0.4-2.0) mmol/L Calcium 8.5 (8.5-10.1) mg/dl Magnesium 1.8 (1.8-2.4) mg/dl Total Bilirubin 0.5 (0.2-1) mg/dl AST 14 L (15-37) U/L ALT 13 (12-78) U/L Alkaline Phosphatase 85 (45-117) U/L Troponin I (0-0.045) ng/ml Total Protein 6.7 (6.4-8.2) gm/dl Albumin 3.4 (3.4-5.0) gm/dl Globulin 3.3 (2.5-4.0) gm/dl Albumin/Globulin Ratio 1.0 (0.9-2) Lipase 464 H (73-393) U/L Urine Opiates Screen (Neg) U Codeine Confrm GC/MS Ur Morphine (GC/MS) Ur Hydrocodone (GC/MS) Ur Norhydrocodone Ur Noroxycodone Urine Oxycodone (GC/MS) U Oxymorphone GC/MS Ur Methadone, Qual (Neg) Ur Hydromorphone (GC/MS) Urine Barbiturates (Neg) Ur Phencyclidine (PCP) (Neg) U Amphetamin/Meth Scrn (Neg) Urine MDEA MDMA (Ecstasy) Screen (Neg) MDMA Urine MDMA U Benzodiazepines Scrn (Neg) Ur Cocaine Metabolite (Neg) U Marijuana (THC) Screen (Neg) Drug Screen Comment 09/30/19 09/30/19 09/30/19 Range/Units 07:13 06:35 06:35 WBC 8.40 (4.8-10.8) K/uL RBC 4.60 (4.2-5.4) M/uL Hgb 13.5 (12.0-16.0) g/dL Hct 38.6 (37-47) % MCV 83.9 (80-100) fL MCH 29.3 (25-34) pg MCHC 35.0 (32-36) g/dL RDW Std Deviation 40.4 (36.4-46.3) fL RDW Coeff of Janeen 13.3 (11.5-14.5) % Plt Count 233 (130-400) K/uL MPV 9.8 (7.4-10.4) fL Immature Gran % (Auto) 0.2 % Neut % (Auto) 73.4 % Lymph % (Auto) 17.6 % Granville % (Auto) 7.6 % Eos % (Auto) 1.1 % Baso % (Auto) 0.1 % Immature Gran # (Auto) 0.02 (0.00-0.02) K/uL Neut # (Auto) 6.16 (1.4-6.5) K/uL Lymph # (Auto) 1.48 (1.2-3.4) K/uL [place]ville # (Auto) 0.64 H (0.11-0.59) K/uL Eos # (Auto) 0.09 (0-0.5) K/uL Baso # (Auto) 0.01 (0-0.2) K/uL Sodium (136-145) mmol/L Potassium (3.5-5.1) mmol/L Chloride (98-107) mmol/L Carbon Dioxide (21-32) mmol/L Anion Gap (3-11) BUN (7-18) mg/dl Creatinine (0.6-1.2) mg/dl Est Cr Clr Drug Dosing ml/min Est GFR ( Amer) Est GFR (Non-Af Amer) BUN/Creatinine Ratio (10-20) Glucose (70-99) mg/dl POC Glucose (70-99) mg/dl Lactate (0.4-2.0) mmol/L Calcium (8.5-10.1) mg/dl Magnesium (1.8-2.4) mg/dl Total Bilirubin (0.2-1) mg/dl AST (15-37) U/L ALT (12-78) U/L Alkaline Phosphatase (45-117) U/L Troponin I (0-0.045) ng/ml Total Protein (6.4-8.2) gm/dl Albumin (3.4-5.0) gm/dl Globulin (2.5-4.0) gm/dl Albumin/Globulin Ratio (0.9-2) Lipase (73-393) U/L Urine Opiates Screen Pos H (Neg) U Codeine Confrm GC/MS Pending Ur Morphine (GC/MS) Pending Ur Hydrocodone (GC/MS) Pending Ur Norhydrocodone Pending Ur Noroxycodone Pending Urine Oxycodone (GC/MS) Pending U Oxymorphone GC/MS Pending Ur Methadone, Qual Neg (Neg) Ur Hydromorphone (GC/MS) Pending Urine Barbiturates Neg (Neg) Ur Phencyclidine (PCP) Neg (Neg) U Amphetamin/Meth Scrn Neg (Neg) Urine MDEA Pending MDMA (Ecstasy) Screen Pos H (Neg) MDMA Pending Urine MDMA Pending U Benzodiazepines Scrn Neg (Neg) Ur Cocaine Metabolite Neg (Neg) U Marijuana (THC) Screen Neg (Neg) Drug Screen Comment Pending 09/30/19 09/30/19 09/29/19 Range/Units 06:07 00:16 17:48 WBC (4.8-10.8) K/uL RBC (4.2-5.4) M/uL Hgb (12.0-16.0) g/dL Hct (37-47) % MCV (80-100) fL MCH (25-34) pg MCHC (32-36) g/dL RDW Std Deviation (36.4-46.3) fL RDW Coeff of Janeen (11.5-14.5) % Plt Count (130-400) K/uL MPV (7.4-10.4) fL Immature Gran % (Auto) % Neut % (Auto) % Lymph % (Auto) % [place]ville % (Auto) % Eos % (Auto) % Baso % (Auto) % Immature Gran # (Auto) (0.00-0.02) K/uL Neut # (Auto) (1.4-6.5) K/uL Lymph # (Auto) (1.2-3.4) K/uL Granville # (Auto) (0.11-0.59) K/uL Eos # (Auto) (0-0.5) K/uL Baso # (Auto) (0-0.2) K/uL Sodium (136-145) mmol/L Potassium (3.5-5.1) mmol/L Chloride (98-107) mmol/L Carbon Dioxide (21-32) mmol/L Anion Gap (3-11) BUN (7-18) mg/dl Creatinine (0.6-1.2) mg/dl Est Cr Clr Drug Dosing ml/min Est GFR ( Amer) Est GFR (Non-Af Amer) BUN/Creatinine Ratio (10-20) Glucose (70-99) mg/dl POC Glucose 106 H 104 H 91 (70-99) mg/dl Lactate (0.4-2.0) mmol/L Calcium (8.5-10.1) mg/dl Magnesium (1.8-2.4) mg/dl Total Bilirubin (0.2-1) mg/dl AST (15-37) U/L ALT (12-78) U/L Alkaline Phosphatase (45-117) U/L Troponin I (0-0.045) ng/ml Total Protein (6.4-8.2) gm/dl Albumin (3.4-5.0) gm/dl Globulin (2.5-4.0) gm/dl Albumin/Globulin Ratio (0.9-2) Lipase (73-393) U/L Urine Opiates Screen (Neg) U Codeine Confrm GC/MS Ur Morphine (GC/MS) Ur Hydrocodone (GC/MS) Ur Norhydrocodone Ur Noroxycodone Urine Oxycodone (GC/MS) U Oxymorphone GC/MS Ur Methadone, Qual (Neg) Ur Hydromorphone (GC/MS) Urine Barbiturates (Neg) Ur Phencyclidine (PCP) (Neg) U Amphetamin/Meth Scrn (Neg) Urine MDEA MDMA (Ecstasy) Screen (Neg) MDMA Urine MDMA U Benzodiazepines Scrn (Neg) Ur Cocaine Metabolite (Neg) U Marijuana (THC) Screen (Neg) Drug Screen Comment 09/29/19 09/29/19 09/29/19 Range/Units 15:45 15:44 15:44 WBC (4.8-10.8) K/uL RBC (4.2-5.4) M/uL Hgb (12.0-16.0) g/dL Hct (37-47) % MCV (80-100) fL MCH (25-34) pg MCHC (32-36) g/dL RDW Std Deviation (36.4-46.3) fL RDW Coeff of Janeen (11.5-14.5) % Plt Count (130-400) K/uL MPV (7.4-10.4) fL Immature Gran % (Auto) % Neut % (Auto) % Lymph % (Auto) % [place] % (Auto) % Eos % (Auto) % Baso % (Auto) % Immature Gran # (Auto) (0.00-0.02) K/uL Neut # (Auto) (1.4-6.5) K/uL Lymph # (Auto) (1.2-3.4) K/uL [place]ville # (Auto) (0.11-0.59) K/uL Eos # (Auto) (0-0.5) K/uL Baso # (Auto) (0-0.2) K/uL Sodium 138 (136-145) mmol/L Potassium (3.5-5.1) mmol/L Chloride 110 H (98-107) mmol/L Carbon Dioxide 22 (21-32) mmol/L Anion Gap 6.0 (3-11) BUN 5 L D (7-18) mg/dl Creatinine 0.77 (0.6-1.2) mg/dl Est Cr Clr Drug Dosing 92.9 ml/min Est GFR ( Amer) 112.7 Est GFR (Non-Af Amer) 97.3 BUN/Creatinine Ratio 6.1 L (10-20) Glucose 75 (70-99) mg/dl POC Glucose (70-99) mg/dl Lactate 1.0 (0.4-2.0) mmol/L Calcium 8.7 (8.5-10.1) mg/dl Magnesium (1.8-2.4) mg/dl Total Bilirubin 0.5 (0.2-1) mg/dl AST (15-37) U/L ALT 17 (12-78) U/L Alkaline Phosphatase 95 (45-117) U/L Troponin I (0-0.045) ng/ml Total Protein 7.8 (6.4-8.2) gm/dl Albumin 3.8 (3.4-5.0) gm/dl Globulin 4.0 (2.5-4.0) gm/dl Albumin/Globulin Ratio 1.0 (0.9-2) Lipase Cancelled 278 (73-393) U/L Urine Opiates Screen (Neg) U Codeine Confrm GC/MS Ur Morphine (GC/MS) Ur Hydrocodone (GC/MS) Ur Norhydrocodone Ur Noroxycodone Urine Oxycodone (GC/MS) U Oxymorphone GC/MS Ur Methadone, Qual (Neg) Ur Hydromorphone (GC/MS) Urine Barbiturates (Neg) Ur Phencyclidine (PCP) (Neg) U Amphetamin/Meth Scrn (Neg) Urine MDEA MDMA (Ecstasy) Screen (Neg) MDMA Urine MDMA U Benzodiazepines Scrn (Neg) Ur Cocaine Metabolite (Neg) U Marijuana (THC) Screen (Neg) Drug Screen Comment 09/29/19 09/29/19 Range/Units 12:40 06:19 WBC (4.8-10.8) K/uL RBC (4.2-5.4) M/uL Hgb (12.0-16.0) g/dL Hct (37-47) % MCV (80-100) fL MCH (25-34) pg MCHC (32-36) g/dL RDW Std Deviation (36.4-46.3) fL RDW Coeff of Janeen (11.5-14.5) % Plt Count (130-400) K/uL MPV (7.4-10.4) fL Immature Gran % (Auto) % Neut % (Auto) % Lymph % (Auto) % [place] % (Auto) % Eos % (Auto) % Baso % (Auto) % Immature Gran # (Auto) (0.00-0.02) K/uL Neut # (Auto) (1.4-6.5) K/uL Lymph # (Auto) (1.2-3.4) K/uL [place]ville # (Auto) (0.11-0.59) K/uL Eos # (Auto) (0-0.5) K/uL Baso # (Auto) (0-0.2) K/uL Sodium (136-145) mmol/L Potassium (3.5-5.1) mmol/L Chloride (98-107) mmol/L Carbon Dioxide (21-32) mmol/L Anion Gap (3-11) BUN (7-18) mg/dl Creatinine (0.6-1.2) mg/dl Est Cr Clr Drug Dosing ml/min Est GFR ( Amer) Est GFR (Non-Af Amer) BUN/Creatinine Ratio (10-20) Glucose (70-99) mg/dl POC Glucose 136 H (70-99) mg/dl Lactate (0.4-2.0) mmol/L Calcium (8.5-10.1) mg/dl Magnesium (1.8-2.4) mg/dl Total Bilirubin (0.2-1) mg/dl AST (15-37) U/L ALT (12-78) U/L Alkaline Phosphatase (45-117) U/L Troponin I < 0.015 (0-0.045) ng/ml Total Protein (6.4-8.2) gm/dl Albumin (3.4-5.0) gm/dl Globulin (2.5-4.0) gm/dl Albumin/Globulin Ratio (0.9-2) Lipase (73-393) U/L Urine Opiates Screen (Neg) U Codeine Confrm GC/MS Ur Morphine (GC/MS) Ur Hydrocodone (GC/MS) Ur Norhydrocodone Ur Noroxycodone Urine Oxycodone (GC/MS) U Oxymorphone GC/MS Ur Methadone, Qual (Neg) Ur Hydromorphone (GC/MS) Urine Barbiturates (Neg) Ur Phencyclidine (PCP) (Neg) U Amphetamin/Meth Scrn (Neg) Urine MDEA MDMA (Ecstasy) Screen (Neg) MDMA Urine MDMA U Benzodiazepines Scrn (Neg) Ur Cocaine Metabolite (Neg) U Marijuana (THC) Screen (Neg) Drug Screen Comment PG Care Time/CCT Total # of Minutes Spent Total Time Spent with Patient: Total time spent is greater than 50% in coordination of care (as documented) at patient's floor/unit and/or counseling patient: Coding Level of Care Code 68816 Subseq Hosp Care Lvl 3 Diagnoses Intractable nausea and vomiting R11.2 Rebound hypertension I15.8 Cholelithiasis K80.20 H/O migraine Z86.69 Anxiety F41.9 GERD (gastroesophageal reflux disease) K21.9 Hypoglycemia E16.2 Hypokalemia E87.6 DVT prophylaxis Z29.9
[2019-09-30] MEDS ORDERED: METOPROLOL TARTRATE 1 MG/ML VIAL IV PRN (12:51)
[2019-09-30] MEDS ORDERED: METOPROLOL TARTRATE 1 MG/ML VIAL IV STA (13:00)
[2019-09-30] MEDS ORDERED: METOCLOPRAMIDE HCL INJ 5 MG/ML 2 ML VIAL IV STA (16:21)
[2019-09-30] MEDS ORDERED: DiphenhydrAMINE HCL 50 MG/ML VIAL IV ONE (16:30)
[2019-09-30] MEDS ORDERED: METOCLOPRAMIDE HCL INJ 5 MG/ML 2 ML VIAL IV ONE (20:00)
[2019-10-01] MEDS: MoRPHine SULFATE 4 MG/ML 1 ML CARP\\VIAL IV PRN (06:26)
[2019-10-01] MEDS: PANTOprazole 40 MG TAB PO SCH (07:37)
[2019-10-01] MEDS: BuPROPion SR 150 MG TABCR PO SCH (07:37)
[2019-10-01] MEDS: POTASSIUM CHLORIDE 40 MEQ in D5W AND NSS 1,000 ML IV SCH (07:37)
[2019-10-01] MEDS: cloNIDine HCL 0.1 MG TAB PO SCH (07:37)
[2019-10-01] MEDS: lamoTRIgine 100 MG TAB PO SCH (07:37)
[2019-10-01 08:21] LABS: BUN Creatinine Ratio 3.8 (10-20); Calcium 8.5 mg/dl (8.5-10.1); Creatinine Clr Calc Pharmacy 108.1 ml/min; Est GFR (Non-African American) 111.3; Potassium 3.8 mmol/L (3.5-5.1)
[2019-10-01] MEDS ORDERED: DiphenhydrAMINE HCL 50 MG/ML VIAL IV STA (08:41)
[2019-10-01] MEDS ORDERED: METOCLOPRAMIDE HCL INJ 5 MG/ML 2 ML VIAL IV STA (08:41)
[2019-10-01] MEDS ORDERED: KETOROLAC TROMETHAMINE 15 MG/ML VIAL IV ONE (08:41)
[2019-10-01] MEDS ORDERED: CYCLOBENZAPRINE HCL 5 MG TAB PO STA (09:34)
[2019-10-01] MEDS: BuPROPion SR 100 MG TABCR PO SCH (10:49)
[2019-10-01] MEDS ORDERED: LIDOCAINE 5% 1 PATCH TD SCH (12:00)
[2019-10-01] MEDS ORDERED: VERAPAMIL HCL 180 MG TABCR PO SCH (12:15)
[2019-10-01] MEDS ORDERED: DEXAMETHASONE SOD PHOSPHATE 4 MG in SYRINGE 0 ML IV SCH (12:30)
--- NOTE | 2019-10-01 15:47 | Hospitalist Progress Note ---
Date of Service October 01, 2019 Results & Data ([facility]) Vital Signs (Past 12 Hours) Vital Signs Temp Pulse Pulse Resp BP Pulse Ox 10/01/19 15:16 36.9 C 84 18 154/94 H 98 10/01/19 11:44 36.7 C 84 18 152/101 H 97 10/01/19 09:00 72 10/01/19 07:47 36.6 C 82 18 153/93 H 96 10/01/19 04:02 36.7 C 83 16 130/81 98 PG Care Time/CCT Total # of Minutes Spent Total Time Spent with Patient: Total time spent is greater than 50% in coordination of care (as documented) at patient's floor/unit and/or counseling patient: Coding
--- NOTE | 2019-10-01 16:45 | Discharge Summary ---
Date of Service October 01, 2019 Admission HPI Per Admitting Provider Britni Acosta is a 38 y/o female with past medical hx of Anxiety, Depression, Migraines, GERD who presented to [facility] ED for CC of Vomiting. She notes onset of vomiting today x4 with continuous nausea, no bloody emesis; emesis was green. She notes she has a numerous episodes of loose stools which have resolved; no black/bloody stools. She notes generalized abdominal pain and RUQ pain as well. She states she has had early satiety for weeks "I haven't been able to eat for weeks." She notes she is unable to eat any thing fried/fatty because of RUQ pain. She denies sick contacts. Britni states she hasn't been able to take her Clonidine which she takes for her mood because of vomiting. She denies prior hx of HTN or DM. All of her home meds are related to Migraine treatment or her Anxiety/depression. She takes Tramadol for neck pain between her botox injections and her Ajovy injection. She follows with a neurologist. She is from [place] but came here to [facility] "because [place] [[facility] sucks." Here in the [place] she was found to be significantly HTN with BP 180s/120s. Her lab work was unremarkable. UA was contaminated. She was treated with Dilaudid 0.5mg IV, Zofran 4mg IV x1, Toradol 30mg IV x1, Tylenol 1gm PO, Phenergan 25mg IV x1, and received 2L of NSS Bolus. She was had a KUB and RUQ US which showed gallstones without signs of cholecystitis. She denies smoking or recreational drugs. She did not get the annual influenza vaccine. She notes only prior abd surgery was laparoscopic for endometriosis. Admission Exam Per Admitting Provider Constitutional: WD/WN, vitals as above cooperative and comfortable numerous tattoos across body and torso Eyes: PERRL, conjunctivae normal, anicteric sclerae ENMT: external ear and nose normal, oropharynx normal Neck: normal visual inspection and trachea midline Respiratory: normal respiratory effort; no respiratory distress and does not use accessory muscles Auscultation: + diminished lung sounds; no crackles, no rales and no rhonchi Cardiovascular: RRR, no murmur, no edema Gastrointestinal (Abdomen): Inspection/Auscultation: normal bowel sounds Percussion/Palpation: abdomen soft; abdomen nontender, no guarding and abdomen not rigid umbilical old surgical scar consistent with prior laparoscopic surgery Skin: no rashes, warm and dry Neurologic: moves all extremities and awake; no focal motor deficits and not confused Psychiatric: A+Ox3, euthymic affect Principal Diagnosis Viral Gastroenteritis, Intractable nausea, Migraine secondary to rebound hypertension Discharge Exam Constitutional well developed, well nourished and cooperative; + uncomfortable Eyes + anicteric sclerae and PERRL Neck trachea midline, no thyromegaly Respiratory normal respiratory effort, lungs clear to auscultation Cardiovascular RRR, no murmur, no edema Gastrointestinal (Abdomen) Inspection/Auscultation: normal bowel sounds Percussion/Palpation: abdomen soft; no hepatosplenomegaly Musculoskeletal no cyanosis or clubbing, extremities motor strength 5/5 Skin no rashes, warm and dry Neurologic PERRL, EOMI, accommodation nl, no face palsy, no dysarthria CN's II-XI intact bilaterally Psychiatric Orientation: alert and oriented x 3 Lymphatic no cervical or axillary lymphadenopathy Discharge Data Allergies Allergy/AdvReac Type Severity Reaction Status Date / Time blue dye Allergy Swelling Verified 09/29/19 02:30 of Lip/Tongue/Throat latex Allergy Rash Verified 09/29/19 02:30 peanut Allergy Swelling Verified 09/29/19 02:30 of Lip/Tongue/Throat Consultations 09/29/19 01:26 ED Decision to Admit Stat 09/29/19 02:04 ED Decision to Admit Stat Ordered Studies 09/28/19 23:06 US gallbladder Urgent KUB 09/29/19 15:[address] abd pelvis IV con only Urgent Hospital Course (1) Intractable nausea and vomitin38 y/o female with past medical hx of Anxiety, Depression, Migraines, GERD who was admitted for Intractable Vomiting; also HTN most likely rebound from not taking Clonidine. * Suspected viral gastroenteritis as we are seeing this as an endemic illness. Also, rebound hypertension and migraine also contributing to continued associated nausea. No further episodes of vomiting while inpatient. Was molly erating po diet on day of discharge * Afebrile, no WBC. Lactate 1.0. Bicarb low morning of 09/29 at 16, however improved to 22 on repeat in afternoon after IVFs were given. Bicarb stable at 21 * US GB with stones but without evidence of acute cholecystitis, LFTs wnl. Lipase wnl * KUB with nonobstructive bowel gas pattern, however interestingly several scattered foci throughout the abdomen which may reflect ingested material -- per conversation, patient denies ingesting any foreign body to her knowledge * CT A/p without acute process * Did have some hypoglycemia on day of admission secondary to not eating. Dextrose added to IVF with resolution * Received multiple doses of IV benadryl, reglan, phenergan, toradol, morphine for migraine. Hydralazine IV prn for systolic BP >160 as well as IV lopressor. PO flexeril x 1, heating pad for neck pain. After administration of IV decadron and administration of lidocaine patch, patient with much improvement in migraine symptoms and requested to be discharged. BP elevated but stable at 154/94 prior to discharge. No focal neurological deficits, slurred speech, etc. * Consider Surgery consultation if abdominal pain recurs as outpatient for HIDA/elective cholecystectomy -- deferred to PCP * UA positive for opiates (likely secondary to morphine given for headache) and ecstasy (possibly from bupropion use) (2) Rebound hypertension: * Most likely from not getting her Clonidine from her vomiting causing rebound HTN. Also utilized morphine for pain initially, contributing to headache as well. * See above * Hydralazine prn * Given lopressor evening 09/29 and additional dose ordered for BP 158/118 * BPs improved by the time of discharge down to 154/94 * added on verapamil 180mg po once daily for migraine prevention which should also help with HTN * f/u as outpt with PCP (3) Cholelithiasis: * As noted on RUQ US, without signs of acute cholecystitis * Could consider HIDA scan as outpatient if patient has recurrance of abd pain for possible biliary colic * consider outpt Surgery referral for elective cholecystectomy (4) H/O migraine: * Held home meds including Triptan in setting of elevated BP during admission. Continue lamictal. Medications managed by Dr. Davila in [place]. * Lamictal continued. Given reglan and benadryl for abortive therapy as well as decadron which helped * Tension type headache also treated with valium * Patient initiated on verapamil prior to discharge, 180mg PO, for prevention -- continued at discharge * given Medro Dose pack upon discharge for migraine (5) Anxiety: * Chronic. Stable. Continued with home Wellbutrin, clonidine, lamotrigine (6) GERD (gastroesophageal reflux disease): * Continued home protonix -- patient initially unable to take PO and added famotidine BID IV. Discharged on home protonix. (7) Hypoglycemia: * Glucose in the 50s initially likely secondary to no po intake. IVF transitioned to D5NS @ 125/hr -- added 40 MEQ KCL for K of 3.1, which improved to 3.8 * BSGs 92-132 over past 24 hour prior to discharge (8) Hypokalemia: * K 3.1 on 09/30. Given 2 K riders in addition to 40 MEQ in IVF as patient without much of an appetite initially. Mag wnl * Repeat K 3.8 prior to discharge (9) DVT prophylaxis: * SCDs * Avoided chemical phophylaxis in setting of vomiting to prevent Lianet Benites tear Dispo: discharged home with Total Time Total Time Spent Total Time Spent (In Minutes): 60 Discharge Plan Discharge Items Patient Disposition: Home - Self-Care Reason For Visit: INTRACTABLE VOMITING Discharge Diagnosis: Viral Gastroenteritis, Migraine from rebound hypertension Condition on Discharge: Fair Goals: You have been hospitalized for an acute medical problem. During your stay at [facility], we have made an effort to correct the problem that brought you to the hospital while keeping you as comfortable as possible. Medications were used to bring your condition under control and your discharge instructions will include directions for any medications you should take after leaving the hospital. Please make sure you see your Primary Care Provider as part of your follow up plan. Activity: Resume your previous activity Non-emergency contact: Primary Care Provider and Neurologist Call non-emergency contact if: you have any medication questions, your symptoms worsen, your pain is not controlled, your pain is worsening and your pain is unusual for you Follow-up/Referrals: Dr. Chance Davila [Other] (Please, follow up at [facility] with Dr. Chance Davila on FridayOctober 05 at 2:15 pm. *If you need to change this appointment, call the office at [phone].) Diet: Regular Addtl Attending Provider Instructions: You were treated with IV fluids as well as several medications to combat rebound high blood pressure which likely occured as the result of not being able to take your clonidine. You are being given a short taper of steroids (methylprednisolone). Please take as directed on package. --You had previously received decadron in your IV as a steroid, which as discussed, was very beneficial to provide relief. You are also being sent a prescription for verapamil for blood pressure and migraine prevention. You did receive this medication today. You should get a call sometime next week regarding an appointment to get established with a new primary care provider. Until then, you should still follow up with your primary care provider in the next 3-5 days. Please return to the emergency room if you develop any visual changes, slurred speech or for any symptoms that are concerning for you. It has been a pleasure being a part of the care team providing for you while you have been hospitalized. Take care! Pending Studies at Discharge: No Stand-Alone Forms: My [facility], Work/School Release (Inpt) Medications and DC Order Prescriptions: New verapamil 180 mg Tablet Extended Release 180 mg PO QAM Qty: 30 RF: 0 methylprednisolone 4 mg tablets,dose pack See Rx Instructions .ROUTE .COMPLEX Qty: 21 RF: 0 Continued bupropion HCl 150 mg tablet sustained-release 12 hr 150 mg PO QAM RF: 0 clonidine HCl 0.1 mg tablet 0.05 mg PO QAM RF: 0 clonidine HCl 0.1 mg tablet 0.1 mg PO HS RF: 0 bupropion HCl 100 mg tablet sustained-release 12 hr 100 mg PO .AT NOON RF: 0 norethindrone (contraceptive) [Blanca] 0.35 mg tablet 0.35 mg PO DAILY RF: 0 tramadol 50 mg tablet 50 mg PO Q6 PRN (Reason: Pain) RF: 0 lamotrigine 100 mg tablet 100 mg PO DAILY RF: 0 trazodone 50 mg tablet 25 - 50 mg PO HS PRN (Reason: Sleep) RF: 0 sumatriptan succinate 100 mg tablet 100 mg PO UD PRN (Reason: Migraine Headache) RF: 0 Ajovy 225 mg/1.5 mL syringe 225 mg SUBCUT MONTHLY RF: 0 riboflavin (vitamin B2) [Vitamin B-2] 100 mg tablet 100 mg PO Q OTHER DAY RF: 0 pantoprazole 40 mg tablet,delayed release (DR/EC) 40 mg PO DAILY RF: 0 Discharge Orders: Discharge Order (Routine); Ordered 10/01/19 Ordered By: Ashlee Vazquez Admission Data Admit Date/Time: 09/29/19 02:51 Attending Provider: Ashlee Vazquez Admit Provider: Blake Vivas Primary Care Provider: Chance Davila Other Providers: Conrad Willson Other Interventions: Discharge Summary Assessment (RN) Last Done: 10/01/19 17:38 DC Date/Time DO NOT enter until pt leaves facility: 10/01/19 18:02 Supervising Physician Co-Signing Physician Notes PA Supervision Note: I personally saw and examined the patient. I verified all mckeon points and agree with MAX Soto with the following exceptions and/or additions: Pt much improved on day of dc, BPs lower, headache better, molly po. VSS RRR no mgr CTAB no wcr Abd soft NT ND Ext no edema or calf tenderness Stable for dc to home Needs close f/u on BPs and migraine Coding Level of Care Code 75631 OBS Care - Discharge Diagnoses Intractable nausea and vomiting R11.2 Rebound hypertension I15.8 Cholelithiasis K80.20 H/O migraine Z86.69 Anxiety F41.9 GERD (gastroesophageal reflux disease) K21.9 Hypoglycemia E16.2 Hypokalemia E87.6 DVT prophylaxis Z29.9
[2019-10-01] MEDS: ONDANSETRON INJ 2 MG/ML 2 ML VIAL IV PRN (17:47)
[2019-10-03 08:30] LABS: Codeine Urine NEGATIVE ng/mL (<50); Hydrocodone Urine NEGATIVE ng/mL (<50); Hydromor Urine NEGATIVE ng/mL (<50); MDA negative; MDEA negative; MDMA (Ecstasy) Urine, Confirm negative; Morphine Urine 5280 ng/mL (<50); Norhydrocodone Conf Ur NEGATIVE ng/mL (<50); Noroxycodone Urine NEGATIVE ng/mL (<50); Oxycodone Urine NEGATIVE ng/mL (<50); Oxymorph Urine NEGATIVE ng/mL (<50)
== END 2019-10-01 18:02 | disposition home or self-care (01) ==
LOC: ED 21:48 → 3N 21:48 → SUATTDRO 09-29 02:51 → 3N 09-29 03:31 → 2W 09-29 18:36